=== PATIENT | female | born 1985 | race Caucasian/White ===

== ENCOUNTER 2020-10-01 12:23 | Emergency (ER) | payer OTHER ==
[~2020-10-01] VITALS: Ht 175.3 cm; Wt 63.5 kg
[~2020-10-01 12:23] MED LIST: Buspirone HCl15 MG PO; Cleocin HCl300 MG PO; HYDACE5 PO; HYDR1TAB94 PO; NAPR550 PO; OLANZAPINE2.5 MG PO
== END 2020-10-01 14:11 | disposition home or self-care (01) ==
LOC: ER 12:23
DX: F43.9 Reaction to severe stress, unspecified (principal); F11.20 Opioid dependence, uncomplicated; F17.200 Nicotine dependence, unspecified, uncomplicated
CPT/HCPCS: 99283